=== PATIENT | female | born 1945 | race Caucasian/White ===

== ENCOUNTER 2021-04-13 12:10 | Emergency (ER) | payer OTHER ==
[~2021-04-13] VITALS: Ht 165.1 cm; Wt 90.7 kg
[2021-04-13 12:25] VITALS: BP 132/76
--- NOTE | 2021-04-13 13:55 | NUR ---
PT TAKEN TO BED 10.
--- NOTE | 2021-04-13 14:16 | NUR ---
75/F presents to ED with c/o left wrist pain. Patient states for two days she has been having worsening left wrist pain. Left wrist appears red, open sore noted with drainage present, site is tender to touch. Patient is able to move bilateral wrists appropriately, sensation equal bilaterally, patient able to move all fingers appropriately, states she had a similar sore on her right wrist previously, states "but it went away on its own." Patient denies taking anything at home for pain.
[2021-04-13] MEDS ORDERED: CLIN300C2 PO (14:47)
[2021-04-13 15:27] VITALS: BP 140/81
--- NOTE | 2021-04-13 15:27 | NUR ---
Patient discharged with v/s stable. Written and verbal after care instructions given and explained. Patient alert, oriented and verbalized understanding of instructions. Ambulatory with steady gait. All questions addressed prior to discharge. ID band removed. Patient advised to follow up with PMD. Rx of Cleocin given. Patient educated on indication of medication including possible reaction and side effects. Opportunity to ask questions provided and answered.
== END 2021-04-13 15:27 | disposition home or self-care (01) ==
LOC: MED 12:10
DX: L03.114 Cellulitis of left upper limb (principal); E11.9 Type 2 diabetes mellitus without complications; I10 Essential (primary) hypertension; Z90.49 Acquired absence of other specified parts of digestive tract; Z79.899 Other long term (current) drug therapy
CPT/HCPCS: 99283